=== PATIENT | male | born 1995 | race Caucasian/White ===

== ENCOUNTER 2018-10-24 09:57 | Outpatient (CLI) | payer OTHER, SELFPAY ==
[2018-10-24 13:16] LABS: Cholesterol 228 mg/dL (50-200); Glucose 94 mg/dL (70-100); HDL Cholesterol 58 mg/dL (40-60); LDL CHOLESTEROL 154 mg/dL (<100); Triglyceride 65 mg/dL (30-150)
== END 2018-10-24 10:17 ==
PROVIDERS: PCP Family Medicine; Visit Provider Family Medicine
DX: Z00.00 Encounter for general adult medical examination without abnormal findings (principal)
CPT/HCPCS: 36415; 80061; 82947; 83721

== ENCOUNTER 2022-06-16 11:26 | Outpatient (CLI) | payer BC, SELFPAY ==
--- NOTE | 2022-06-16 11:30 | RT.EKG_ITS ---
APPROVED REPORT Exam: Resting ECG Reason for Exam: numbness Patient Location: O HR:74 bpm ECG Measurements Heart Rate 74 AXIS MI 160 P 15 QRSd 106 QRS -9 QT 384 T 38 QTc 426 Conclusion Sinus rhythm...normal P axis, V-rate 50- 99 Normal Electrocardiogram
== END 2022-06-16 11:27 | disposition home or self-care (01) ==
PROVIDERS: PCP Family Medicine; Visit Provider Family Medicine
DX: I10 Essential (primary) hypertension (principal); R20.0 Anesthesia of skin
CPT/HCPCS: 93010

== ENCOUNTER 2022-06-19 01:18 | Outpatient (CLI) | payer BC, SELFPAY ==
[2022-06-19 12:14] LABS: Abs Immature Grans 0.01 10^3/uL (0.0-0.06); Absolute Basophil Count 0.04 10^3/uL (0.0-0.2); Absolute Eosinophil Count 0.22 10^3/uL (0.0-0.7); Absolute Lymphocyte Count 2.05 10^3/uL (1.2-3.4); Absolute Neutrophil Count 4.41 10^3/uL (1.2-6.7); Basophils % 0.5; HGB 15.4 g/dL (13.5-17.5); Immature Grans % 0.1; MCH 28.7 pg (27.0-33.0); MCHC 33.5 % (32.0-36.0); MCV 86 fL (80-95); MPV 9.5 fL (8.0-11.0); Monocytes % 8.2; Neutrophils % 60.2; Platelet Count 430 10^3/uL (130-400); RBC 5.37 10^6/uL (4.36-5.78); RDW 13.1 % (11.8-14.1); RDW-SD 40.4 fL; WBC 7.33 10^3/uL (4.4-10.8)
[2022-06-19 12:51] LABS: ALT 57 U/L (16-63); AST 22 U/L (15-37); Albumin 4.1 g/dL (3.4-5.0); Alkaline Phosphatase 83 U/L (46-116); Anion Gap 7.8 mmol/L (3-11); BUN 15 mg/dL (7-18); Bilirubin, Total 0.5 mg/dL (0.2-1.0); CO2 28.2 mmol/L (21.0-32.0); CREATININE 0.9 mg/dL (0.70-1.30); Calcium 9.6 mg/dL (8.5-10.1); Calculated LDL 155 mg/dL (<100); Chloride 102 mmol/L (98-107); Cholesterol 233 mg/dL (<200); Estimated GFR 119.31 (mL/min/1.73m2); Glucose 88 mg/dL (74-106); HDL Cholesterol 59 mg/dL (40-60); Potassium 3.9 mmol/L (3.5-5.1); Sodium 138 mmol/L (136-145); TSH (W/Ref FT4) 2.12 uIU/mL (0.36-3.74); Total Protein 8.4 g/dL (6.4-8.2); Triglyceride 95 mg/dL (<150)
[2022-06-19 12:58] LABS: Hemoglobin A1C 5.4 % (<5.7)
== END 2022-06-19 01:19 | disposition home or self-care (01) ==
LOC: LOS 01:18
PROVIDERS: PCP Family Medicine; Visit Provider Family Medicine
DX: Z00.00 Encounter for general adult medical examination without abnormal findings (principal); E66.01 Morbid (severe) obesity due to excess calories; R20.0 Anesthesia of skin; Z13.1 Encounter for screening for diabetes mellitus
CPT/HCPCS: 36415; 80053; 80061; 83036; 84443; 85025

== ENCOUNTER 2022-06-22 09:38 | Outpatient (CLI) | payer BC, SELFPAY ==
--- NOTE | 2022-06-22 09:30 | RT.EKG_ITS ---
APPROVED REPORT Exam: Resting ECG Reason for Exam: chest discomfort Patient Location: O HR:68 bpm ECG Measurements Heart Rate 68 AXIS KY 179 P 26 QRSd 109 QRS -2 QT 383 T 48 QTc 408 Conclusion Sinus rhythm...normal P axis, V-rate 50- 99
== END 2022-06-22 09:39 | disposition home or self-care (01) ==
LOC: DI.CM 09:39
PROVIDERS: PCP Family Medicine; Visit Provider Nurse Practitioner Family
DX: R07.89 Other chest pain (principal)
CPT/HCPCS: 93010

== ENCOUNTER 2022-09-01 02:16 | Outpatient (CLI) | payer BC, SELFPAY ==
[2022-09-01 12:49] LABS: Abs Immature Grans 0.02 10^3/uL (0.0-0.06); Absolute Basophil Count 0.04 10^3/uL (0.0-0.2); Absolute Eosinophil Count 0.22 10^3/uL (0.0-0.7); Absolute Lymphocyte Count 2.12 10^3/uL (1.2-3.4); Absolute Monocyte Count 0.69 10^3/uL (0.1-0.8); Absolute Neutrophil Count 5.18 10^3/uL (1.2-6.7); Basophils % 0.5; Eosinophils % 2.7; HCT 43.1 % (40.0-50.0); HGB 14.5 g/dL (13.5-17.5); Immature Grans % 0.2; Lymphocytes % 25.6; MCH 28.3 pg (27.0-33.0); MCHC 33.6 % (32.0-36.0); MCV 84 fL (80-95); Monocytes % 8.3; Neutrophils % 62.7; Platelet Count 389 10^3/uL (130-400); RBC 5.13 10^6/uL (4.36-5.78); RDW 12.5 % (11.8-14.1); RDW-SD 37.7 fL; WBC 8.27 10^3/uL (4.4-10.8)
[2022-09-01 13:28] LABS: ALT 48 U/L (16-63); AST 22 U/L (15-37); Albumin 4.1 g/dL (3.4-5.0); Alkaline Phosphatase 90 U/L (46-116); Anion Gap 6.8 mmol/L (3-11); BUN 15 mg/dL (7-18); Bilirubin, Total 0.5 mg/dL (0.2-1.0); CO2 30.2 mmol/L (21.0-32.0); Calcium 9.4 mg/dL (8.5-10.1); Chloride 100 mmol/L (98-107); Estimated GFR 119.31 (mL/min/1.73m2); Glucose 94 mg/dL (74-106); Potassium 3.7 mmol/L (3.5-5.1); Sodium 137 mmol/L (136-145); Total Protein 8.1 g/dL (6.4-8.2); Vitamin B12 1030 pg/mL (193-986)
[2022-09-01 13:29] LABS: CREATININE 0.9 mg/dL (0.70-1.30)
--- NOTE | 2022-09-01 13:40 | DI.CT_ITS ---
Exam(s) CT NECK W EXAM: CT NECK W INDICATION: paresthesia, lymphadenopathy,EVAL SOFT TISSUES,R20.2,R59.1,R77.8. COMPARISON: No exams were available for comparison TECHNIQUE: Contrast: Intravenous Optiray 350 100 ml FINDINGS: NASOPHARYNX: Unremarkable OROPHARYNX: Unremarkable. No masses evident. Symmetrically enlarged pharyngeal tonsils. No evidenc e of abscess. No airway obstruction. HARI DENTAL: No evidence of dental mandible intact. Abscess. RETROPHARYNGEAL: No abnormal swelling. HYPOPHARYNX: Unremarkable. Valleculae and epiglottis and aryepiglottic folds appear normal. VOCAL CORDS: Unremarkable. No masses evident. Subglottic airway appears unremarkable. THYROID GLAND: Unremarkable. Normal size and no obvious nodules. SALIVARY GLANDS: Unremarkable. No significant findings in the parotid and submandibular glands. LYMPH NODES: There is no adenopathy evident in the neck and supraclavicular regions. OTHER: Visualized paranasal sinuses clear. VISUALIZED LUNG APICES: No significant findings. IMPRESSION: 1. No significant findings in soft tissues of the neck. No lymphadenopathy CONTRAST MATERIAL: Intravenous: Omnipaque 350 Contrast volume:100 mL RADIATION DOSE DELIVERED: 670.87mGy.cm Total DLP 670.87mGy.cm Total DLP DATA REPOSITORY: All CT scans at this facility are submitted to the National Radiology Data Registry (NRDR) Dose Index Registry (DIR) with the [employer] (A[employer]). RADIATION OPTIMIZATION: All CT scans at this facility use at least one of these dose optimization te chniques: automated exposure control; mA and/or kV adjustment per patient size (includes targeted exa ms where dose is matched to clinical indication); or iterative reconstruction.
[2022-09-01] MEDS: Omnipaque 350 MG/ML 500 ML BTL-Imaging package 100 ML IJ (13:54)
== END 2022-09-01 02:36 ==
LOC: DI 02:17
PROVIDERS: PCP Family Medicine; Visit Provider Family Medicine
DX: Z00.00 Encounter for general adult medical examination without abnormal findings (principal); R20.2 Paresthesia of skin; R59.1 Generalized enlarged lymph nodes; R77.8 Other specified abnormalities of plasma proteins; E55.9 Vitamin D deficiency, unspecified; J35.1 Hypertrophy of tonsils
CPT/HCPCS: 70491; 80053; 82306; 82607; 85025

== ENCOUNTER 2022-10-14 02:03 | Outpatient (CLI) | payer BC, SELFPAY ==
--- NOTE | 2022-10-14 06:30 | DI.MRI_ITS ---
Exam(s) MR BRAIN WO EXAM: MR BRAIN WO CLINICAL HISTORY: ?MS, Lt hand and face paraesthesias,r20.2 TECHNIQUE: Multiplanar multisequence MRI of the brain was performed. COMPARISON: No exams were available for comparison FINDINGS: VENTRICLES AND EXTRA AXIAL SPACES: Normal in size and morphology for the patient's age. MIDLINE SHIFT : None. CEREBRAL PARENCHYMA: No focus of restricted diffusion to suggest acute infarct. No space-occupying le santana identified. HEMORRHAGE: None. BRAINSTEM/CEREBELLUM: Normal. VISUALIZED PARANASAL SINUSES/MASTOIDS:Clear. [place]: Normal flow void. PITUITARY GLAND: Unremarkable. ORBITS: Unremarkable. IMPRESSION: Unremarkable MRI of the brain. DATA REPOSITORY:
--- NOTE | 2022-10-14 06:30 | DI.MRI_ITS ---
Exam(s) MR CERVICAL SPINE WO EXAM: MR CERVICAL SPINE WO CLINICAL HISTORY: ? MS; L arm/face > leg tingling,paresthesia,r20.2 TECHNIQUE: Multiplanar multisequence MRI of the cervical spine was performed without intravenous con trast. COMPARISON: No exams were available for comparison FINDINGS: BONES: Vertebral body heights are maintained. Alignment is normal. Bone marrow signal intensity is wi thin normal limits. CERVICAL CORD: Craniovertebral junction is unremarkable. The cervical cord is normal size and signal intensity. SOFT TISSUES: Unremarkable. C2-3: No disc herniation or bulge is identified. No evidence of neural foraminal narrowing. No signi ficant central canal stenosis C3-4: No disc herniation or bulge is identified. No evidence of neural foraminal narrowing. No signif icant central canal stenosis C4-5: No disc herniation or bulge is identified. No evidence of neural foraminal narrowing. No signif icant central canal stenosis C5-6: No disc herniation or bulge is identified. No evidence of neural foraminal narrowing. No signif icant central canal stenosis C6-7: No disc herniation or bulge is identified. No evidence of neural foraminal narrowing. No signif icant central canal stenosis C7-T1: No disc herniation or bulge is identified. No evidence of neural foraminal narrowing. No signi ficant central canal stenosis IMPRESSION: Unremarkable MRI of the cervical spine. DATA REPOSITORY:
== END 2022-10-14 02:23 ==
LOC: DI 02:04
PROVIDERS: PCP Family Medicine; Visit Provider Psychiatry & Neurology Neurology
DX: R20.2 Paresthesia of skin (principal)
CPT/HCPCS: 70551; 72141

== ENCOUNTER 2022-11-20 00:43 | Outpatient (CLI) | payer BC, SELFPAY ==
--- NOTE | 2022-11-20 11:13 | DI.RAD_ITS ---
Exam(s) RF BARIUM SWALLOW EXAM: RF BARIUM SWALLOW CLINICAL HISTORY: GERD with chest discomfort,? hiatal hernia,esophagitis or reflux TECHNIQUE: 2D and realtime digital imaging was performed. CONTRAST MATERIAL: Thick and thin barium and barium tablet were administered. COMPARISON: No exams were available for comparison FINDINGS: The PA and lateral chest shows normal heart size and clear lung vaz. The lateral cap and hat production supervisor view of th e neck is unremarkable.Esophagus: The patient swallowed barium without difficulty. Noevidence for muc osal erosions. Nofold thickening. No mass is visible. Nostricture. Motility: There is a normal primary stripping wave. No tertiary contractions were noted. There is no hiatal hernia. Severe gastroesophageal reflux was observed during the exam. IMPRESSION: Severe gastroesophageal reflux. RADIATION DOSE DELIVERED: edna Simon=83.7 mGy
[2022-11-20] MEDS: Barium Sulfate 98% W/W 140 ML BTL PO (11:15)
[2022-11-20] MEDS: Barium Sulfate 60% W/V 355 ML BTL PO (11:15)
[2022-11-20] MEDS: Simethicone/Sod Bicarb/Cit Ac, 4 gram PACKET 1 PACKET PO (11:17)
== END 2022-11-20 01:03 ==
LOC: DI 00:44
PROVIDERS: PCP Family Medicine; Visit Provider Family Medicine
DX: K21.9 Gastro-esophageal reflux disease without esophagitis (principal)
CPT/HCPCS: 74221; J3490

== ENCOUNTER 2023-01-20 07:36 | Day surgery (SDC) | payer BC, SELFPAY ==
[2023-01-20] VITALS (7 sets, daily range): BP systolic 123–171; BP diastolic 60–82; PULSE 55–97; RESP 15–21; TEMP 36.2–37; O2SAT 94–99; BMI 42.7
[2023-01-20] MEDS: Lactated Ringers 1,000 ML 80 ML IV (08:06)
--- NOTE | 2023-01-20 08:25 | W.ANESPRE ---
General Info Date of Service Date Performed: 01/20/23 Height: 6 ft Weight: 143.1 kg Body Mass Index (BMI): 42.7 Surgical Procedure: Operation Date: 01/20/23 08:35 Proposed Procedure Side Surgeon p Gastroscopy Jannie Hou MD Actual Procedure Side Surgeon p Gastroscopy Not Applicable Jannie Hou MD Meds Allergies and Home Medications Allergies Allergy/AdvReac Type Severity Reaction Status Date / Time No Known Allergies Allergy Verified 01/20/23 07:52 Home Medication Medication Instructions Recorded cetirizine 10 mg capsule (Zyrtec) 20 mg PO HS 08/28/22 lisinopril 10 mg tablet 10 mg PO DAILY #90 tabs 08/28/22 pantoprazole 40 mg tablet,delayed 40 mg PO DAILY #90 tabs 12/25/22 release cholecalciferol (vitamin D3) 25 25 mcg PO .every other day 01/12/23 mcg (1,000 unit) capsule multivitamin-ferrous 1 tab PO DAILY 01/12/23 fumarate-folic acid 18 mg-400 mcg tablet (Centrum Complete) Current Visit Medications: Current Medications Generic Name Dose Route Start Last Admin Trade Name Freq PRN Reason Stop Dose Admin Ringer's Solution 1,000 mls @ 80 mls/hr 01/20/23 06:00 01/20/23 08:06 IV 02/18/23 23:59 80 mls/hr INFUSION SHAHNAZ Administration IV Miscellaneous Supplies 1 each 01/20/23 06:00 Iv Access IV 02/18/23 23:59 DIRECTED SHAHNAZ Sodium Chloride 0 ml 01/20/23 06:00 Normal Saline Flush 10 Ml Syr IV 02/18/23 23:59 PRN PRN Sodium Chloride 0 ml 01/20/23 06:00 Normal Saline 10 Ml Vial IJ 02/18/23 23:59 DIRECTED PRN Sterile Water 0 ml 01/20/23 06:00 Water,Injection,Sterile 10 Ml Vial IJ 02/18/23 23:59 DIRECTED PRN PFSH Active Problems Active Problems: Problem Status Onset Code Elevated LDL cholesterol level E78.00 Morbid obesity due to excess calories E66.01 Essential hypertension I10 GERD (gastroesophageal reflux disease) K21.9 Migraine headache without aura G43.009 Carpal tunnel syndrome of left wrist G56.02 Carpal tunnel syndrome of right wrist G56.01 Ulnar neuropathy at elbow of left upper extremity G56.22 Adult BMI 40.0-44.9 kg/sq m Z68.41 Medical History Medical History Family history of diabetes mellitus (DM) (10/19/17) History of hyperlipidemia (10/19/17) Tobacco Smoking/Tobacco Use Status: Never Passive smoking exposure: Yes Second hand exposure: Yes Alcohol Alcohol Intake: current Alcohol intake frequency: holidays/special occasions only Alcohol type: beer Substance Use Substance use: Never Substance use type: does not use Vital Signs and Lab Results Vital Signs Most Recent Vital Signs in EMR: Most Recent Vital Signs Temp Pulse Resp BP Pulse Ox 36.2 C L 55 L 16 135/74 99 01/20/23 07:46 01/20/23 07:46 01/20/23 07:46 01/20/23 07:46 01/20/23 07:46 Lab Results Blood Type / Crossmatch: No Data to Display Complete Blood Count: No Data to Display Complete Metabolic Panel: No Data to Display Liver Function Panel: No Data to Display Coagulation Panel: No Data to Display Cardiac Panel: No Data to Display Arterial Blood Gas: No Data to Display Venous Blood Gas: No Data to Display Pancreas Panel: No Data to Display Thyroid Panel: No Data to Display Infectious Disease: No Data to Display Blood Cultures: No Data to Display Toxicology Panel: No Data to Display Imaging and Studies Imaging and Studies Study information below may be from another EMR and interpreted by another provider. Please see original notes in EMR for more complete details. EKG Summary: 06/22/2022: Exam: Resting ECG Reason for Exam: chest discomfort Patient Location: O HR:68 bpm ECG Measurements Heart Rate 68 AXIS ID 179 P 26 QRSd 109 QRS -2 QT 383 T48 QTc 408 Conclusion Sinus rhythm...normal P axis, V-rate 50- 99 Anesthesia Assessment and Plan Anesthesia History Personal History: No History of General Anesthesia Family History: No Family History of Anesthesia Complications Exercise Tolerance Exercise Tolerance: Metabolic Equivalents>4 Pertinent Negatives Pertinent Negatives: No Major Cardiovascular Symptoms or Complaints and No Major Pulmonary Symptoms or Complaints Cardiac & Pulmonary Exam Cardiac Exam: Normal S1/S2 Heart Sounds Pulmonary Exam: Clear Bilateral Breath Sounds Implantable Cardiac Device Does patient have a Pacemaker or an ICD?: No Airway Exam Known Difficult Airway: No Mallampati Class: 2 Mouth Opening: Normal (> 3cm) Thyromental Distance: Greater than 3 cm Neck Range of Motion: Full ROM Neck Circumference: Normal Teeth Condition: Normal Dentition ASA Classification ASA Score: ASA 3 Emergency Case?: No NPO Status NPO Status: NPO Clears >2 hours, Solids >8 hours Anesthesia Plan Resuscitation Status: Full Code Anesthesia Technique: General Anesthesia Airway Planned: Natural Airway Monitors Used: Standard Monitors
--- NOTE | 2023-01-20 08:35 | W.PM.PROGNOT ---
Date of Service Date of service: 01/20/23 Time of Service: 08:35 Assessment and Plan Assessment and plan (1) GERD (gastroesophageal reflux disease): Status: Chronic Assessment and plan: Jose is a pleasant 27-year-old gentleman with severe reflux noted on barium swallow.? He is currently on pantoprazole 40 mg daily.? He has breakthrough symptoms on that dose.? I discussed the EGD procedure with him in detail and reviewed all the risks, benefits and complications.? He seems to have a good understanding of the applications.? Risks, benefits and complications have been reviewed. Complications include but are not limited to bleeding, pain, perforation, sore throat, aspiration, and adverse reaction to the medications.? Questions were entertained and answered to their satisfaction and they wished to proceed. No guarantees were given or implied.? I did review it with him that because his reflux is so severe he is at higher risk of aspiration which may mean having to get admitted for antibiotics and prednisone.? I will order Bicitra for him prior to the procedure to try to prevent issues if he does aspirate. Subjective Subjective Interval history since last seen: I saw Jose in same-day surgery prior to his procedure. He is doing well. He has not had any upper respiratory symptoms. He continues to have the reflux symptoms. He has not developed any new symptoms like dysphagia or vomiting. Exam Const General: cooperative, comfortable and no acute distress [facility] Head: normocephalic and atraumatic Resp Effort & Inspection: normal respiratory effort Auscultation: clear to auscultation bilaterally Cardio Rate: regular rate Rhythm: regular rhythm Objective Last Vital Signs Temp 97.2 F L 01/20/23 07:46 Pulse 55 L 01/20/23 07:46 Resp 16 01/20/23 07:46 BP 135/74 01/20/23 07:46 Pulse Ox 99 01/20/23 07:46 Time Spent with Patient Time Spent with Patient: <25 minutes Time was spent: other
--- NOTE | 2023-01-20 08:54 | STOM_PTH ---
PATIENT: Jose Cr LOC: [facility] U#:[id number] AGE/SX: 27/M ROOM: RE01/20/[address]: Jannie Hou MD : 1995 BED: DIS: 01/20/2023 SPEC #: [id number] RECD: 01/20/23 10:37 STATUS: MICHELLE RE #: [id number] AMOS: 01/20/23 08:[address]: Jannie Hou DEPT: Surgical Specimen RECD BY: Sita Fleming ENTERED: 01/20/23 10:38 SP TYPE: STOMACH OTHR DR: Sunshine Olmstead Tissues: 1 - STOMACH BIOPSY 2 - STOMACH BIOPSY 3 - ESOPHAGUS BIOPSY Procedures: GROSS AND MICRO LEVEL 4 Comments: [id number]
--- NOTE | 2023-01-20 09:47 | W.ANESPOSTOP ---
Postoperative Evaluation Date, Time and Location Date Performed: 01/20/23 Time Performed: 09:35 Patient Location: Day Surgery Unit Vital Signs Most Recent Imported Vital Signs: Most Recent Vital Signs Temp Pulse Resp BP Pulse Ox 36.6 C 85 17 130/75 95 01/20/23 09:35 01/20/23 09:35 01/20/23 09:35 01/20/23 09:35 01/20/23 09:35 Pain Score Most Recent Pain Score: Most Recent Pain Score Pain Level 0 01/20/23 09:23 Assessment Mental Status: Awake (Alert & Oriented to Patient Baseline) Airway and Respiratory Function: Patent airway with normal (patient baseline) respiratory exam Cardiovascular Function: Hemodynamically Stable Hydration Status: Adequately Hydrated Nausea & Vomiting: No Nausea or Vomiting Pain: Pt. Denies Any Pain Peripheral Nerve Block: Patient did not receive a nerve block
--- NOTE | 2023-01-20 09:48 | PDOC.DSDIS_ITS ---
Date of service: 01/20/23 Time of Service: 09:48 Discharge Plan Disposition Patient Disposition: Home Condition: Stable Discharge Details Reason For Visit: GERD Attending Provider: Jannie Hou Primary Care Provider: Sunshine Olmstead Home Meds and New Rx's Prescriptions: Continued Centrum Complete 18-400 mg-mcg tablet 1 tab PO DAILY cholecalciferol (vitamin D3) 25 mcg (1,000 unit) capsule 25 mcg PO .every other day Zyrtec 10 mg capsule 20 mg PO HS lisinopril 10 mg tablet 10 mg PO DAILY Qty: 90 3RF pantoprazole 40 mg tablet,delayed release (DR/EC) 40 mg PO DAILY Qty: 90 1RF Discharge Instructions Instructions: Heart Healthy Diet (DC), Weight Management (DC), GERD (Gastroesophageal Reflux Disease) (DC) Additional Instructions: Findings: Esophagitis Follow up: 2 weeks No new medications Discussed healthy diet. We reviewed weight loss, as this is most likely what is going to help his reflux the most. Offered a labor custodian consult. At this time he wants to try to loose weight on his own. Recommend some sort of pam on his phone that helps him track calories Please call if you develop: fevers >101.5 Nausea or Vomiting Abdominal pain that is not transient Rectal bleeding that is more then a tbsp A hard abdomen and inability to pass gas Shortness of breath DAY SURGERY UNIT POST ENDOSCOPY INSTRUCTIONS Instructions for everyone who is given Anesthesia: For your safety, please do the following for the next 24 Hours: a. Do not drive or operate dangerous equipment b. Do not drink alcohol beverages or use any recreational drugs for the first 24 hours or while taking pain medications. The medications in your body may have a reaction that can be dangerous. c. Do not make any important decisions or sign any important papers 1. Generally there are no restrictions on your activity after a day or so has gone by, but you may feel a bit fatigued for a few days. 2. After you arrive home you may have a light meal and return to a normal diet as you can tolerate it without feeling sick to your stomach. 3. After surgery, you may feel pain or discomfort. This should be only transient, but if it persists please contact your doctor. 4. If there are any questions regarding the findings of your procedure, please feel free to contact your doctor. 6. If you are unable to contact your doctor with a problem, contact the hospital at [phone]. 7. Continue all your regular medications unless directed otherwise. I understand the above instructions and have no questions. Signature of Patient or Responsible Adult Escort Date/Time Name of Responsible Adult Escort Signature of Nurse Date/Time Activity:: Activity as Tolerated Diet:: heart healthy Discharge Orders Discharge Orders: Discharge Order (Routine); Ordered 01/20/23 Ordered By: Jannie Hou DS: Diagnosis Discharge Diagnosis (1) GERD (gastroesophageal reflux disease): Status: Chronic Asessment and Plan: Patient is seen and examined after their endoscopy. Patient has minimal sore throat. They have been able to tolerate liquids. They do not have any Nausea or Vomiting. They are not having any chest pain or shortness of breath. They have been able to pass gas and are not having any abdominal pain or distention. they have not vomited any blood. The vital signs have been stable-see nursing notes. We discussed findings on their endoscopy We reviewed the importance of lifestyle modifications- see diet recommendations We reviewed any new medications that the patient may be prescribed- see medicine reconciliation. Patient will either be sent a letter with the biopsy results or follow up in the office- see discharge instructions Patient was given explicit instructions for emergency follow up post endoscopy- see discharge instructions Patient verbalized understanding and was discharged in stable and satisfactory condition. See nursing notes.
--- NOTE | 2023-01-20 09:53 | ENDO_ITS ---
Date of service: 01/20/23 Time of Service: 09:00 Endoscopy Report DATE OF PROCEDURE: 01/20/23 PRE-OP DIAGNOSIS: GERD POST-OP DIAGNOSIS: same PROCEDURE: EGD with biopsies SURGEON: Jannie Hou ANESTHESIA TYPE: General LMA/ETT ESTIMATED BLOOD LOSS: 5 PATHOLOGY: other (Bx of antrum, body and esophagus) COMPLICATIONS: None DISPOSITION: PACU INDICATIONS: Tessie Garcia was seen in same-day surgery prior to his procedure. He is a 27-year-old gentleman who has had some severe reflux symptoms. He had a barium swallow which showed severe reflux. We reviewed the risks, benefits and complications of the procedure both in the office and then again today in same- day surgery. He has a good understanding of the complications and the procedure itself and wishes to proceed. There were no new symptoms today. Because of his severe reflux and his overall size anesthesia and I elected to do this under general with intubation. The patient looked from his anatomy as though he would be a very hard person to bag if needed. There is also the risk of aspiration which was high for him. This was explained to the patient and he was in agreement with this plan. FINDINGS: He was found to have some very mild inflammation in the stomach. He definitely had reflux esophagitis. Question whether he has Mims's. Of note the anesthesiologist did note some inflammation in the back of his throat when she went to intubate him. PROCEDURE DESCRIPTION: After informed consent was obtained the patient was take to the procedure harsh m and placed in a supine position. Monitors were applied and a time out was done. The patients name, date of , procedure type, allergies to medications and metal in their body was reviewed. The patient was placed under general anesthesia and intubated without difficulty. Once the patient was intubated and his ET tube was secured I started the procedure.. The gastroscope was advanced through the oropharynx which was grossly normal into the esophagus. The proximal and mid-esophagus were normal. In the distal esophagus there was inflammation noted. The scope was advanced into the stomach and through the pylorus into the 3rd portion of the duodenum. The duodenum was noted to be normal. The scope was retracted back into the stomach. There was some mild inflammation noted and biopsies were done to rule out H. pylori. There were no ulcers. The scope was retroflexed. The cardia and fundus were noted to be normal. There was no hiatal hernia noted. The scope was retracted back into the esophagus and biopsies were done of the GE junction to rule out Mims's. The Z line was regular. The GE junction was at 35 cm. The scope was removed and the patient was woken up and taken back to [facility] in stable condition. Follow up: I will have [facility] follow-up in the office in 2 weeks so we can review the biopsy results. For now continue on the omeprazole 40 mg taking it in the morning which seems to be helping him.
== END 2023-01-20 10:25 | disposition home or self-care (01) ==
PROVIDERS: PCP Family Medicine; Visit Provider Surgery
PROC: 0DJ68ZZ Inspection of Stomach, Via Natural or Artificial Opening Endoscopic (ICD-10-PCS; CPT 43235; principal; 2023-01-20 08:30)
DX: K21.00 Gastro-esophageal reflux disease with esophagitis, without bleeding (principal); K29.70 Gastritis, unspecified, without bleeding; K22.89 Other specified disease of esophagus
CPT/HCPCS: 43239; 88305; J2405

== ENCOUNTER → 2023-05-24 00:38 | Outpatient (CLI) | payer BC, SELFPAY ==
--- NOTE | 2023-05-24 05:45 | ETT_ITS ---
APPROVED REPORT Exam: Exercise Treadmill Patient Location: Out-Patient Room/Bed: Stress Nurse: Colby Martinez RN Ordering Provider:HAYLEE GUARDADO, Contact Number: [phone] BMI: 42.71 Baseline Rhythm: Sinus Rhythm Indications: Exertional chest pain. Medical History Medical History: Obesity , HTN, ROXANNA, HLD. Cardiac Medications: none Allergies: No known drug allergies Cardiac Risk Factors: HTN, Obesity, Hyperlipidemia Previous Cardiac Procedures: none Pretest Chest Pain Characteristics: No chest pain Exercise History: Physically active Physical Disabilities: none Lung Sounds: clear Heart Sounds: Regular Stress Test Details Test: Exercise stress testing was performed using a John protocol. Rest Stress HR Resting HR Supine: 91 bpm Max Heart Rate (APMHR): 191 bpm Resting HR Standin bpm Target HR (85% APMHR): 162 bpm Max HR Achieved: 171 bpm % of APMHR: 90 Recovery HR: 103 bpm HR response to stress: Normal HR response to stress BP Resting BP Supine: 126/60 mmHg Resting BP Standin/76 mmHg Max BP: 160/60 mmHg Recovery BP: 134/66 mmHg BP response to stress: Normal blood pressure response to stress. ECG Resting ECG: Sinus Rhythm Ectopy: none Stress ECG: Sinus Tachycardia ST Change: No significant ST segment changes noted Arrhythmia: None Recovery ECG: Sinus Rhythm Recovery ST Change: No significant ST segment changes noted Recovery Arrhythmia: None Clinical Reason for Termination: Target HR Achieved Stress Symptoms: none Exercise duration: 8 min10 sec Highest Stage Reached: Stage 3: 3.4 mph at 14% grade. Exercise capacity: 10.16 METs Angina Score: None Harris Treadmill Score: 6.3 Rate Pressure Product: 10334 Stress ECG Conclusion 1. Resting electrocardiogram was within normal limits 2. Patient exercised on the John protocol and completed a workload of 10.16 METS 3. Normal heart rate and blood pressure response to exercise. The patient achieved 90% of predicted heart rate for age. There were no symptoms of angina 4. There was no electrocardiographic evidence of myocardial ischemia 5. There were no dysrhythmias Harris Treadmill Score is 6.3 which is Low risk. Stress Test Summary STAGE Time (mins) Speed (mph) Grade (%) HR BP SpO2 SYMPTOMS METS Supine 91 126/60 Standing 96 134/76 1 3 1.7 10 121 94 4.5 2 6 2.5 12 146 93 7 1 min recovery 169 160/60 95 3 min recovery 107 146/62 98 6 min recovery 103 134/66 96
== END ==
PROVIDERS: PCP Family Medicine; Visit Provider Nurse Practitioner Family
DX: R07.9 Chest pain, unspecified (principal)
CPT/HCPCS: 93017

== ENCOUNTER 2024-02-11 12:28 | Outpatient (CLI) | payer BC, SELFPAY ==
[2024-02-11 13:00] LABS: ALT 41 U/L (16-63); AST 16 U/L (15-37); Albumin 3.7 g/dL (3.4-5.0); Alkaline Phosphatase 91 U/L (46-116); Anion Gap 9.5 mmol/L (3-11); BUN 15 mg/dL (7-18); Bilirubin, Total 0.35 mg/dL (0.2-1.0); CO2 27.5 mmol/L (21.0-32.0); CREATININE 0.8 mg/dL (0.70-1.30); Calculated LDL 114 mg/dL (<100); Chloride 105 mmol/L (98-107); Cholesterol 179 mg/dL (<200); Estimated GFR 122.86 (mL/min/1.73m2); Glucose 101 mg/dL (74-106); HDL Cholesterol 58 mg/dL (40-60); Sodium 142 mmol/L (136-145); Total Protein 7.7 g/dL (6.4-8.2); Triglyceride 38 mg/dL (<150); Vitamin D 25 Total 27.3 ng/mL (30-100)
== END 2024-02-11 12:29 | disposition home or self-care (01) ==
LOC: LBO 12:29
PROVIDERS: PCP Family Medicine; Visit Provider Family Medicine
DX: Z00.00 Encounter for general adult medical examination without abnormal findings (principal); I10 Essential (primary) hypertension; Z13.6 Encounter for screening for cardiovascular disorders; E78.00 Pure hypercholesterolemia, unspecified
CPT/HCPCS: 36415; 80053; 80061; 82306

== ENCOUNTER 2024-11-23 17:20 | Emergency (ER) | payer BC, SELFPAY ==
[2024-11-23 17:22] VITALS: BP 163/93; PULSE 96; RESP 16; O2SAT 98
[2024-11-23 17:26] VITALS: BP 163/93; PULSE 96; RESP 16; TEMP 37.2; O2SAT 98
--- NOTE | 2024-11-23 18:56 | ED.GENADUL_ITS ---
Discharge Plan Disposition Patient Disposition: Home Discharge Details Clinical Impression: Abdominal pain, Hematuria Primary Care Provider: Sunshine Olmstead ED Provider: Zina Dykes Home Meds and New Rx's Prescriptions: No Action Centrum Complete 18-400 mg-mcg tablet 1 tab PO DAILY cholecalciferol (vitamin D3) 25 mcg (1,000 unit) capsule 25 mcg PO .every other day pantoprazole 40 mg tablet,delayed release (DR/EC) 40 mg PO BID Qty: 180 0RF lisinopril 10 mg tablet 10 mg PO DAILY Qty: 90 3RF Zyrtec 10 mg capsule 20 mg PO HS Discharge Instructions Additional Instructions: Please call your primary care provider's office first thing in the morning to schedule the draw of labs and urine to make sure that the blood in your urine has resolved and the kidney function remains unchanged. Stay well-hydrated, drinking plenty of fluids throughout the day. Continue taking medications as prescribed. You may use Tylenol ibuprofen as needed for lower abdominal discomfort. Return to emergency care if develop any fever/chills associated abdominal pain, worsening abdominal pain, unable to hold down any fluids, have red/bloody urine or blood in your stool, unusual nosebleeds, episodes of feeling going to pass out, or if you are very worried and need to be rechecked again immediately Referrals: Sunshine Olmstead MD [Primary Care Provider] - [facility] General Date/Time Provider Initiated Documentation: 11/23/24 17:42 . HPI Narrative: Jose is a 29 year old male who presents with lower abdominal pain, accompanied by his fianc?hernando Snowden. Symptoms began Wednesday night (2 days ago) with upset stomach, diarrhea, and vomiting, alternating from 2200 hours to 600 hours Wednesday. No blood in vomit or stool. Condition improved with cessation of symptoms, tolerating water. Had an episode of severe abdominal pain in the right lower quadrant after vomiting, this has persisted with sharp and localized pain from the umbilical region downwards, occasionally radiating to the right side. this is aggravated by movemnet. Reports back pain, more severe than usual, present at rest and during movement. Chest discomfort for 20-30 minutes while lying down, described as clogged lungs and nasal congestion. History of heartburn, takes pantoprazole daily. Mild abdominal bloating and decreased urination due to limited water intake, believes he is dehydrated, noting dark urine. Denies fever/chills, sore throat, ear pain, SOB, changes in testicles/swelling, bulges, numbness in the perineal area, radicular pain, leg weakness, or nausea today. PMH notable for HTN (takes Lisinopril) and HLD (not on meds). No history of cardiac, pulmonary, or diabetic conditions, abdominal surgeries, or digestive disorders apart from heartburn. Denies family history of early cardiac disease. Physical exam remarkable for tenderness to palpation of lower abdomen. Abdomen is soft, nondistended, no rigidity or guarding. Patient is alert and oriented, no acute distress. Slightly tacky mucous membranes, no cervical or submandibular lymphadenopathy. Easy work of breathing, able to speak in full sentences. DDx includes but is not limited to viral gastroenteritis, nephrolithiasis, diverticulitis, UTI, early appendicitis, other colitis, electrolyte imbalance, dehydration, gastritis/GERD, ACS less likely. Heart score 3 based on significant risk factors. Independently interpreted the following tests: CBC, CMP. UA not consistent with infection, however urine is concentrated concerning for dehydration. Microscopy shows 20-50 RBCs; in setting of reassuring kidney function and normal platelet count with no history of bleeding, this is not consistent with glomerular disease or HUS. CT abd/pelvis unremarkable, discussed findings with Dr Membreno, radiologist. Splenomegaly noted, however this is not consistent with patient's area of tenderness. Unclear etiology of abdominal pain and hematuria; possibly related to recent gastroenteritis. Recommend close f/u with PCP for re-evaluation and repeat UA. Reviewed discharge instructions with patient and his fiance, including importance of f/u with PCP, symptomatic mgmt, and red flags indicating need for return to emergency care. He voices agreement with plan of care Related Data Home Medications ?Medication ?Instructions ?Recorded ?Confirmed cetirizine 10 mg capsule (Zyrtec) 20 mg PO HS 08/28/22 11/23/24 cholecalciferol (vitamin D3) 25 25 mcg PO .every other day 01/12/23 11/23/24 mcg (1,000 unit) capsule multivitamin-ferrous 1 tab PO DAILY 01/12/23 11/23/24 fumarate-folic acid 18 mg-400 mcg tablet (Centrum Complete) lisinopril 10 mg tablet 10 mg PO DAILY #90 tabs 10/25/24 11/23/24 pantoprazole 40 mg tablet,delayed 40 mg PO BID #180 tabs 10/25/24 11/23/24 release Previous Rx's ?Medication ?Instructions ?Recorded lisinopril 10 mg tablet 10 mg PO DAILY #90 tabs 10/25/24 pantoprazole 40 mg tablet,delayed 40 mg PO BID #180 tabs 10/25/24 release Allergies Allergy/AdvReac Type Severity Reaction Status Date / Time No Known Allergies Allergy Verified 11/23/24 17:25 General Stated Complaint: Abd Prob FATUMA: 3 Review of Systems Narrative: see HPI Exam Const General: cooperative, healthy appearing, comfortable, no acute distress, well developed and well groomed Nutritional Appearance: well nourished and overweight Orientation: alert and oriented x3 HENMT Face and sinus: dry mucous membranes (slightly tacky) Mouth: lip normal, tongue normal, salivary ducts normal and oropharynx normal Resp Effort & Inspection: normal respiratory effort and able to speak in complete sentences Auscultation: clear to auscultation bilaterally Cardio Rate: regular rate Rhythm: regular rhythm GI Inspection: normal to inspection Palpation: soft, not firm, no guarding, not rigid and tender in the LLQ, in the RLQ and suprapubicly Auscultation: normal bowel sounds Back/Spine/Pelvis Back: no CVA tenderness Skin General skin exam: no rashes or lesions noted Course Vital Signs Vital signs: Vital Signs Pulse 96 H 11/23/24 17:22 Respiratory Rate 16 11/23/24 17:22 Blood Pressure 163/93 H 11/23/24 17:22 Pulse Oximetry 98 11/23/24 17:22 Temperature 37.2 C 11/23/24 17:26 Pulse 96 H 11/23/24 17:26 Respiratory Rate 16 11/23/24 17:26 Blood Pressure 163/93 H 11/23/24 17:26 Pulse Oximetry 98 11/23/24 17:26 Pain Level 8 11/23/24 17:26 Medical Decision Making Imaging Data Radiologic Study: Radiologist's impression: Exam(s) CT ABDOMEN PELVIS W EXAM: CT ABDOMEN PELVIS W CLINICAL HISTORY: lower abd pain. TECHNIQUE: Imaging Protocol: Axial computed tomography images with coronal and sagittal reformatted images were created and reviewed CONTRAST MATERIAL: Intravenous: Omnipaque-350 100cc Oral: None COMPARISON: No exams were available for comparison FINDINGS: VISUALIZED LUNG BASES: No nodules nor pleural effusions evident. ABDOMEN: x LIVER: There are no focal hepatic lesions evident. No dilated intrahepatic ducts. GALLBLADDER/BILIARY: No obvious gallbladder pathology. CBD is not dilated. PANCREAS: No evidence of pancreatic mass nor dilatation of the pancreatic duct. SPLEEN: Mild splenomegaly. Craniocaudal length of the spleen is 14.5 cm. There are no splenic lesions. Splenic and portal veins are patent. ADRENALS: There are no significant adrenal masses. KIDNEYS:No cysts evident. No solid renal masses. No calculi nor hydronephrosis.. ABDOMINAL AORTA: Abdominal aorta is not enlarged. LYMPH NODES:There is no retroperitoneal nor paraaortic adenopathy. ABDOMINAL WALL: No evidence of significant anterior abdominal wall nor inguinal hernia. GI: There is no evidence of bowel obstruction, free air, nor abscess. PELVIS: GI: The appendix is not identified. However, there is no evidence of acute appendicitis.No significant sigmoid diverticular disease. No colitis pattern. LYMPH NODES: There is no intrapelvic nor inguinal adenopathy. REPRODUCTIVE: Prostate size is normal. Seminal vesicles unremarkable. URINARY BLADDER: No calculi nor obvious masses evident OSSEOUS: No fractures and no significant osseous lesions. IMPRESSION: 1. No significant acute findings in the abdomen and pelvis 2. There is, however, splenomegaly noted 3. No evidence of acute inflammatory process, bowel obstruction, free air, nor abscess. 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 Do you need help understanding health information?: Rarely current 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) Pets and animals: Yes Pets and animals: cat(s) and dog(s) Sexually active: Yes Do you think of yourself as: straight/heterosexual Current gender identity: male What is your relationship status?: living with partner How often do you talk on the phone with friends or family?: three or more times per week How often do you get together with friends or relatives?: three or more times per week How often do you attend lutheran or latter day services?: 1-3 times per year Do you belong to any clubs or organized social groups?: yes Panel score (0-1 are the most socially isolated patients): 3 What type of physical activity do you participate in: walking Duration: 15-30 minutes/day Frequency: 5-6 times per week Ellen/Methodist: Confucianist Special ellen needs: No Seatbelt use: always Helmet use: Yes Helmet use: always Drive intox 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
[2024-11-23 19:13] LABS: Bilirubin Small (Negative); Blood Trace-intact (Negative); Clarity Clear (Clear); Glucose Negative (Negative); Ketones 40 mg/dL (Negative); Leukocyte Esterase Negative (Negative); Nitrite Negative (Negative); Specific Gravity >= 1.030 (1.005-1.025)
--- NOTE | 2024-11-23 19:15 | DI.CT_ITS ---
Exam(s) CT ABDOMEN PELVIS W EXAM: CT ABDOMEN PELVIS W CLINICAL HISTORY: lower abd pain. TECHNIQUE: Imaging Protocol: Axial computed tomography images with coronal and sagittal reformatted images were created and reviewed CONTRAST MATERIAL: Intravenous: Omnipaque-350 100cc Oral: None COMPARISON: No exams were available for comparison FINDINGS: VISUALIZED LUNG BASES: No nodules nor pleural effusions evident. ABDOMEN: x LIVER: There are no focal hepatic lesions evident. No dilated intrahepatic ducts. GALLBLADDER/BILIARY: No obvious gallbladder pathology. CBD is not dilated. PANCREAS: No evidence of pancreatic mass nor dilatation of the pancreatic duct. SPLEEN: Mild splenomegaly. Craniocaudal length of the spleen is 14.5 cm. There are no splenic lesio ns. Splenic and portal veins are patent. ADRENALS: There are no significant adrenal masses. KIDNEYS:No cysts evident. No solid renal masses. No calculi nor hydronephrosis.. ABDOMINAL AORTA: Abdominal aorta is not enlarged. LYMPH NODES:There is no retroperitoneal nor paraaortic adenopathy. ABDOMINAL WALL: No evidence of significant anterior abdominal wall nor inguinal hernia. GI: There is no evidence of bowel obstruction, free air, nor abscess. PELVIS: GI: The appendix is not identified. However, there is no evidence of acute appendicitis.No significa nt sigmoid diverticular disease. No colitis pattern. LYMPH NODES: There is no intrapelvic nor inguinal adenopathy. REPRODUCTIVE: Prostate size is normal. Seminal vesicles unremarkable. URINARY BLADDER: No calculi nor obvious masses evident OSSEOUS: No fractures and no significant osseous lesions. IMPRESSION: 1. No significant acute findings in the abdomen and pelvis 2. There is, however, splenomegaly noted 3. No evidence of acute inflammatory process, bowel obstruction, free air, nor abscess. Report called by myself to ER provider 11/23/2024 at 9:28 p.m. RADIATION DOSE DELIVERED: 1,061.66mGy.cm Total DLP DATA REPOSITORY: All CT scans at this facility are submitted to the National Radiology Data Registry (NRDR) Dose Index Registry (DIR) with the [employer] (ACR). RADIATION OPTIMIZATION: All CT scans at this facility use at least one of these dose optimization te chniques: automated exposure control; mA and/or kV adjustment per patient size (includes targeted exa ms where dose is matched to clinical indication); or iterative reconstruction.
[2024-11-23 19:22] LABS: Bacteria Few HPF (Negative); Crystals Negative HPF (Negative); Epithelial Cells Negative HPF (Negative); Mucus Heavy (Negative); RBC 20-50 HPF (0-2); WBC Negative HPF (0-5)
[2024-11-23 19:23] LABS: C & S Indicated? No; Casts 0-2 Hyaline LPF (Negative)
[2024-11-23 19:25] LABS: Abs Immature Grans 0.04 10^3/uL (0.0-0.06); Absolute Basophil Count 0.03 10^3/uL (0.0-0.2); Absolute Eosinophil Count 0.11 10^3/uL (0.0-0.7); Absolute Lymphocyte Count 1.88 10^3/uL (1.2-3.4); Basophils % 0.3 %; HCT 46.2 % (40.0-50.0); HGB 15.3 g/dL (13.5-17.5); Immature Grans % 0.4 %; Lymphocytes % 17.5 %; MCH 28.8 pg (27.0-33.0); MCHC 33.1 % (32.0-36.0); MCV 87 fL (80-95); MPV 8.8 fL (8.0-11.0); Neutrophils % 67.8 %; Platelet Count 302 10^3/uL (130-400); RBC 5.31 10^6/uL (4.36-5.78); RDW 12.6 % (11.8-14.1); RDW-SD 40.3 fL; WBC 10.76 10^3/uL (4.4-10.8)
[2024-11-23] MEDS: Normal Saline 1,000 ML 1000 ML IV (19:28)
[2024-11-23 20:04] LABS: ALT 44 U/L (16-63); AST 21 U/L (15-37); Albumin 3.7 g/dL (3.4-5.0); Alkaline Phosphatase 87 U/L (46-116); Anion Gap 10.2 mmol/L (3-11); BUN 12 mg/dL (7-18); Bilirubin, Total 0.9 mg/dL (0.2-1.0); CO2 28.8 mmol/L (21.0-32.0); Calcium 9.3 mg/dL (8.5-10.1); Chloride 99 mmol/L (98-107); Estimated GFR 103.84 (mL/min/1.73m2); Glucose 100 mg/dL (74-106); Potassium 3.6 mmol/L (3.5-5.1); Sodium 138 mmol/L (136-145); Total Protein 8.5 g/dL (6.4-8.2); Troponin I 48 ng/L (<or=76)
[2024-11-23 20:21] VITALS: BP 137/80; PULSE 93; RESP 18; O2SAT 99
[2024-11-23] MEDS: Normal Saline - Diluent 50 ML VIAL IJ (20:38)
[2024-11-23] MEDS: Omnipaque 350 MG/ML 100 ML BTL IJ (20:39)
[2024-11-23 20:41] LABS: Troponin I 45 ng/L (<or=76)
--- NOTE | 2024-11-23 21:41 | DI.VRAD_ITS ---
PROCEDURE INFORMATION: Exam: CT Abdomen And Pelvis With Contrast Exam date and time: 11/23/2024 8:25 PM Age: 29 years old Clinical indication: Abdominal pain; Localized; Lower abd pain TECHNIQUE: Imaging protocol: Computed tomography of the abdomen and pelvis with contrast. Radiation optimization: All CT scans at this facility use at least one of these dose optimization techniques: automated exposure control; mA and/or kV adjustment per patient size (includes targeted exams where dose is matched to clinical indication); or iterative reconstruction. Contrast material: [id number]; Contrast volume: 100 ml; Contrast route: INTRAVENOUS (IV); COMPARISON: No relevant prior studies available. FINDINGS: Liver: Normal. No mass. Gallbladder and biliary ducts: Normal. No calcified stones. No ductal dilation. Pancreas: Normal. No ductal dilation. Spleen: Normal. No splenomegaly. Adrenal glands: Normal. No mass. Kidneys and ureters: Normal. No hydronephrosis. Stomach and bowel: Unremarkable. No obstruction. No mucosal thickening. Appendix: No evidence of appendicitis. Intraperitoneal space: Unremarkable. No free air. No significant fluid collection. Vasculature: Unremarkable. No abdominal aortic aneurysm. Lymph nodes: Unremarkable. No enlarged lymph nodes. Urinary bladder: The bladder is not well distended. Reproductive: Unremarkable as visualized. Bones/joints: Unremarkable. No acute fracture. Soft tissues: Unremarkable. IMPRESSION: No evidence for acute abnormality. Dictated and Authenticated by: Tuyet Yu MD. Orderin Amanda Izaguirre MD
[2024-11-23 22:36] VITALS: BP 126/72; PULSE 90; RESP 18; O2SAT 99
== END 2024-11-23 22:37 | disposition home or self-care (01) ==
PROVIDERS: Emergency Provider Nurse Practitioner Family; PCP Family Medicine
DX: R10.30 Lower abdominal pain, unspecified (principal); R31.9 Hematuria, unspecified; I10 Essential (primary) hypertension; E78.5 Hyperlipidemia, unspecified
CPT/HCPCS: 80053; 99285; 74177; 81003; 81015; 83735; 84484; 85025; 99284; J3490